=== PATIENT | male | born 1990 | race Caucasian/White ===

== ENCOUNTER 2019-10-19 10:58 | Emergency (ER) | payer OTHER ==
[~2019-10-19] VITALS: Ht 185.4 cm; Wt 61.8 kg
[2019-10-19 11:12] VITALS: BP 127/57
--- NOTE | 2019-10-19 11:28 | NUR ---
Pt resting on gurney connected to NIBP cuff and continous pulse ox monitor. Pt c/o left testicular pain with touch starting this morning after getting up of the couch. Pt describes pain as excrutiating starting in groin and "shooting" down to left tesitcle upon initial start of pain. Pt denies excrutiating pain at this time but states left testicle is painful to touch at this time. Pt states, "I was driving 12 hours yesterday for work, I don't know if that has something to do with it. I was skateboarding yesterday and I landed a trick and my thighs pinched my testicles, it wasn't excrutiating at that time but I don't know if I damaged something." EDPA at bedside. Call light within reach.
--- NOTE | 2019-10-19 11:53 | NUR ---
assumed care at this time.
--- NOTE | 2019-10-19 12:09 | NUR ---
LATE NOTE ENTRY DUE TO PT CARE for 1153: Provided report to SHOAIB Vieyra. All questions answered. SHOAIB Vieyra to assume care of pt at this time.
--- NOTE | 2019-10-19 12:24 | NUR ---
Pt resting at this time. awaiting us to be completed.
[2019-10-19 12:28] LABS: MICROSCOPIC INDICATED
[2019-10-19 12:53] LABS: CULTURE INDICATED? NO
--- NOTE | 2019-10-19 14:22 | NUR ---
Patient/Caregiver given discharge instructions and they have confirmed that they understand the instructions. Patient ambulatory with steady gait.
== END 2019-10-19 14:24 | disposition home or self-care (01) ==
LOC: ED 12:49
DX: S30.22XA Contusion of scrotum and testes, initial encounter (principal); S30.21XA Contusion of penis, initial encounter; X58.XXXA Exposure to other specified factors, initial encounter; Y93.89 Activity, other specified; Y92.89 Other specified places as the place of occurrence of the external cause; Y99.8 Other external cause status
CPT/HCPCS: 76870; 81001; 99284